=== PATIENT | male | born 1975 | race Caucasian/White ===

== ENCOUNTER 2020-03-04 23:32 | Emergency (ER) | payer OTHER ==
[~2020-03-04] VITALS: Ht 180.3 cm; Wt 117.9 kg
[2020-03-04 23:40] VITALS: BP 139/86
--- NOTE | 2020-03-04 23:46 | NUR ---
PT LINDA AND INSTRUCTED TO WAIT IN THE LOBBY. PT STATED "NO, I'M NOT GOING IN THERE. I'M GONNA HAVE MY GIRLFRIEND COME PICK ME UP." RISK AND BENEFITS EXPLAINED. PATIENT LEFT WITHOUT BEING SEEN BY DR. EATON. NO FURTHER CARE PROVIDED FOR PATIENT.
== END 2020-03-04 23:46 | disposition left against medical advice (07) ==
LOC: MED 23:32
DX: R07.9 Chest pain, unspecified (principal); Z53.21 Procedure and treatment not carried out due to patient leaving prior to being seen by health care provider